=== PATIENT | female | born 1995 | race Caucasian/White ===

== ENCOUNTER 2016-11-12 10:43 | Inpatient (IN) | payer OTHER, BC ==
[2016-11-12] MEDS ORDERED: Butorphanol 1 MG/ML SDV IVPUSH PRN (11:59)
[2016-11-12] MEDS ORDERED: Methylergonovine 0.2 MG/1 ML Amp IM PRN (11:59)
[2016-11-12] MEDS ORDERED: Carboprost Tromethamine 250 MCG/1 ML Amp IM PRN (11:59)
[2016-11-12] MEDS ORDERED: Misoprostol 200 MCG Tab PO PRN (11:59)
[2016-11-12] MEDS ORDERED: Lidocaine 1% 50 ML MDV INJECT PRN (11:59)
[2016-11-12] MEDS ORDERED: Sodium Chloride 0.9% 2.5 ML Syringe FLUSH PRN (11:59)
[2016-11-12] MEDS ORDERED: Water For Irrigation,Sterile 1,000 ML Container IRR PRN (11:59)
[2016-11-12] MEDS ORDERED: Sodium Chloride 0.9% 10 ML Syringe FLUSH PRN (11:59)
[2016-11-12] MEDS ORDERED: Ampicillin 2 GM in Sodium Chloride 0.9% 100 ML IV ONE (11:59)
[2016-11-12] MEDS ORDERED: Nalbuphine 10 MG/1 ML Vial IVPUSH PRN (11:59)
[2016-11-12] MEDS ORDERED: Oxytocin/Lactated Ringers 30 UNIT/500 ML BAG IV SCH ×2 (12:00→13:00)
[2016-11-12] MEDS: Lactated Ringers 1,000 ML IV SCH ×3 (12:30→17:43)
[2016-11-12] MEDS ORDERED: Terbutaline 1 MG/ML SDV SUBCUT PRN (12:50)
[2016-11-12] MEDS ORDERED: Oxytocin/Lactated Ringers 30 UNIT/500 ML BAG ONE (13:04)
[2016-11-12] MEDS ORDERED: fentaNYL 100 MCG/2 ML SDV ONE (16:49)
[2016-11-12] MEDS: Ampicillin 1 GM in Sodium Chloride 0.9% 50 ML IV SCH ×2 (16:49→20:57)
[2016-11-12] MEDS ORDERED: Ropivacaine 0.2% 2 MG/ML 20 ML SDV ONE (16:50)
--- NOTE | 2016-11-12 17:31 | PCM.PREANE ---
Preanesthetic Assessment - Anesthesia/Transfusion/Family Hx Anesthesia History: No Prior Anesthesia Family History of Anesthesia Reaction: No Transfusion History: No Prior Transfusion(s) Additional History: Denies any medical problems or medications - Review of Systems General: No Symptoms Pulmonary: No Symptoms Cardiovascular: No Symptoms Gastrointestinal: No symptoms Neurological: No Symptoms Other: Reports: None (Denies any personal or family hx of bleeding or clotting problems) - Physical Assessment Height: 1.63 m Weight: 73.028 kg ASA Class: 2 Mental Status: Alert & Oriented x3 Dentition: Reports: Normal Dentition ROM/Head Extension: Full - Lab Values: Laboratory Last Values WBC 8.52 K/uL (4.0-11.0) 11/12/16 12:29 RBC 4.47 M/uL (4.30-5.90) 11/12/16 12:29 Hgb 12.9 g/dL (12.0-16.0) 11/12/16 12:29 Hct 38.9 % (36.0-46.0) 11/12/16 12:29 MCV 87.0 fL (80.0-98.0) 11/12/16 12:29 MCH 28.9 pg (27.0-32.0) 11/12/16 12:29 MCHC 33.2 g/dL (31.0-37.0) 11/12/16 12:29 RDW Std Deviation 41.3 fl (28.0-62.0) 11/12/16 12:29 RDW Coeff of Darlene 13 % (11.0-15.0) 11/12/16 12:29 Plt Count 241 K/uL (150-400) 11/12/16 12:29 MPV 9.80 fL (7.40-12.00) 11/12/16 12:29 Nucleated RBC % 0.0 /100WBC 11/12/16 12:29 Nucleated RBCs # 0 K/uL 11/12/16 12:29 Membrane Rupture POSITIVE 11/12/16 11:10 Blood Type O POSITIVE 11/12/16 12:29 Antibody Screen NEGATIVE 11/12/16 12:29 - Allergies Allergies/Adverse Reactions: Allergies Allergy/AdvReac Type Severity Reaction Status Date / Time No Known Allergies Allergy Verified 11/12/16 11:58 - Acknowledgements Anesthesia Type Planned: Epidural Pt an Appropriate Candidate for the Planned Anesthesia: Yes Alternatives and Risks of Anesthesia Discussed w Pt/Guardian: Yes Pt/Guardian Understands and Agrees with Anesthesia Plan: Yes 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: , Spontaneous - Past Surgical History HEENT Surgical History: Reports: Tonsillectomy, Other (See Below) Other HEENT Surgeries/Procedures: wisdom tooth extraction Female Surgical History: Reports: Breast Reconstruction - SUBSTANCE USE Smoking Status *Q: Never Smoker Second Hand Smoke Exposure: No Recreational Drug Use History: No - CURRENT (IN HOUSE) MEDS Current Meds: Current Medications Butorphanol Tartrate (Stadol) 1 mg IVPUSH ASDIRECTED PRN PRN Reason: Pain Carboprost Tromethamine (Hemabate Ds) 250 mcg IM ASDIRECTED PRN PRN Reason: Post Hemorrhage Ampicillin Sodium 1 gm/ Sodium (Chloride) 50 mls @ 100 mls/hr IV Q4H JULIANN Last Admin: 11/12/16 16:49 Dose: 100 mls/hr Lactated Ringer's (Ringers, Lactated) 1,000 mls @ 150 mls/hr IV ASDIRECTED JULIANN Last Admin: 11/12/16 16:48 Dose: 150 mls/hr Oxytocin/Lactated Ringer's (Pitocin In Lr 30 Units/500 Ml) 30 unit in 500 mls @ 2 mls/hr IV TITRATE JULIANN; 2 MUNITS/MIN PRN Reason: Protocol Last Titration: 11/12/16 16:15 Dose: 10 munits/min, 10 mls/hr Lidocaine HCl (Xylocaine 1%) 50 ml INJECT .ONCE PRN PRN Reason: Laceration repair Methylergonovine Maleate (Methergine) 0.2 mg IM ASDIRECTED PRN PRN Reason: Post Hemorrhage Misoprostol (Cytotec) 200 mcg PO .ONCE PRN PRN Reason: Post Hemorrhage Nalbuphine HCl (Nubain) 10 mg IVPUSH ASDIRECTED PRN PRN Reason: Pain (severe 7-10) Stop: 11/14/16 12:00 Sodium Chloride (Saline Flush) 10 ml FLUSH ASDIRECTED PRN PRN Reason: Keep Vein Open Sodium Chloride (Saline Flush) 2.5 ml FLUSH ASDIRECTED PRN PRN Reason: Keep Vein Open Sterile Water (Sterile Water For Irrigation) 1,000 ml IRR ASDIRECTED PRN PRN Reason: delivery Terbutaline Sulfate (Brethine) 0.25 mg SUBCUT ASDIRECTED PRN PRN Reason: Tacysystole Discontinued Medications Fentanyl (Sublimaze) Confirm Administered Dose 100 mcg .ROUTE .STK-MED ONE Stop: 11/12/16 16:50 Ampicillin Sodium 2 gm/ Sodium (Chloride) 100 mls @ 200 mls/hr IV ONETIME ONE Stop: 11/12/16 12:28 Last Admin: 11/12/16 12:30 Dose: 200 mls/hr Oxytocin/Lactated Ringer's (Pitocin In Lr 30 Units/500 Ml) 30 unit in 500 mls @ 999 mls/hr IV ASDIRECTED JULIANN PRN Reason: 999 MUNITS/MIN Stop: 11/12/16 12:31 Oxytocin/Lactated Ringer's (Pitocin In Lr 30 Units/500 Ml) Confirm Administered Dose 30 unit in 500 mls @ as directed .ROUTE .STK-MED ONE Stop: 11/12/16 13:05 Ropivacaine/Fentanyl/NS (Fentanyl 2 Mcg-Ropiv 0.2%-Ns) Confirm Administered Dose 100 mls @ as directed .ROUTE .STK-MED ONE Stop: 11/12/16 16:49 Ropivacaine (Naropin 0.2%) Confirm Administered Dose 20 ml .ROUTE .STK-MED ONE Stop: 11/12/16 16:51
[2016-11-12] MEDS ORDERED: Witch Hazel Medicated Pads 40/Jar TOP PRN (22:35)
[2016-11-12] MEDS ORDERED: oxyCODONE 5 MG Tab PO PRN (22:35)
[2016-11-12] MEDS ORDERED: Lanolin 100% Cream 7 GM Tube TOP PRN (22:35)
[2016-11-12] MEDS ORDERED: Bisacodyl 10 MG Supp RECTAL PRN (22:35)
[2016-11-12] MEDS ORDERED: Benzocaine/Menthol 20%-0.5% Spray 78 GM Cannister TOP PRN (22:35)
[2016-11-12] MEDS ORDERED: Acetaminophen 500 MG Tab PO PRN (22:35)
[2016-11-13] MEDS: Docusate Sodium 100 MG Cap PO SCH ×2 (00:28→08:36)
[2016-11-13] MEDS: Ibuprofen 800 MG Tab PO PRN ×3 (00:30→15:25)
--- NOTE | 2016-11-13 09:44 | PCM48HPAN ---
Post Anesthesia Note - EVALUATION WITHIN 48HRS OF ANESTHETIC Vital Signs in Normal Range: Yes Patient Participated in Evaluation: Yes Respiratory Function Stable: Yes Airway Patent: Yes Cardiovascular Function Stable: Yes Hydration Status Stable: Yes Pain Control Satisfactory: Yes Nausea and Vomiting Control Satisfactory: Yes Mental Status Recovered: Yes - COMMENTS/OBSERVATIONS Free Text/Narrative:: Up in room. Denies headache or complaints. States epidural worked well.
--- NOTE | 2016-11-13 12:07 | PCM.PNPP ---
- General Info Date of Service: 11/13/16 Functional Status: Reports: pain controlled, tolerating diet, ambulating, urinating - Review of Systems General: Reports: No Symptoms HEENT: Reports: no symptoms Pulmonary: Reports: no symptoms Cardiovascular: Reports: No Symptoms Gastrointestinal: Reports: No symptoms Genitourinary: Reports: no symptoms Musculoskeletal: Reports: no symptoms Skin: Reports: no symptoms Neurological: Reports: No Symptoms Psychiatric: Reports: no symptoms - General Info Date of Service: 11/13/16 - Patient Data Vital Signs - most recent: Last Vital Signs Temp 35.7 C 11/13/16 08:20 Pulse 91 11/13/16 08:20 Resp 18 11/13/16 08:20 BP 112/64 11/13/16 08:20 Pulse Ox Weight - most recent: 73.028 kg Lab Results - last 24 hrs: Laboratory Results - last 24 hr 11/12/16 11/12/16 11/13/16 Range/Units 12:29 12:29 05:35 WBC 8.52 (4.0-11.0) K/uL RBC 4.47 (4.30-5.90) M/uL Hgb 12.9 10.3 L (12.0-16.0) g/dL Hct 38.9 30.7 L (36.0-46.0) % MCV 87.0 (80.0-98.0) fL MCH 28.9 (27.0-32.0) pg MCHC 33.2 (31.0-37.0) g/dL RDW Std Deviation 41.3 (28.0-62.0) fl RDW Coeff of Dralene 13 (11.0-15.0) % Plt Count 241 (150-400) K/uL MPV 9.80 (7.40-12.00) fL Nucleated RBC % 0.0 /100WBC Nucleated RBCs # 0 K/uL Blood Type O POSITIVE Antibody Screen NEGATIVE Med Orders - Current: Current Medications Acetaminophen (Tylenol Extra Strength) 500 mg PO Q4H PRN PRN Reason: Pain Benzocaine/Menthol (Dermoplast Pain Relief 20%-0.5% [place]) 78 gm TOP ASDIRECTED PRN PRN Reason: Perineal Comfort Measure Last Admin: 11/13/16 00:28 Dose: 1 spray Bisacodyl (Dulcolax) 10 mg RECTAL .ONCE PRN PRN Reason: Constipation Butorphanol Tartrate (Stadol) 1 mg IVPUSH ASDIRECTED PRN PRN Reason: Pain Carboprost Tromethamine (Hemabate Ds) 250 mcg IM ASDIRECTED PRN PRN Reason: Post Hemorrhage Docusate Sodium (Colace) 100 mg PO BID [facility] Last Admin: 11/13/16 08:36 Dose: 100 mg Emollient Ointment (Lansinoh Hpa) 0 gm TOP ASDIRECTED PRN PRN Reason: Sore Nipples Last Admin: 11/13/16 00:30 Dose: 1 applic Ampicillin Sodium 1 gm/ Sodium (Chloride) 50 mls @ 100 mls/hr IV Q4H [facility] Last Admin: 11/12/16 20:57 Dose: 100 mls/hr Lactated Ringer's (Ringers, Lactated) 1,000 mls @ 150 mls/hr IV ASDIRECTED [facility] Last Admin: 11/12/16 17:43 Dose: 150 mls/hr Oxytocin/Lactated Ringer's (Pitocin In Lr 30 Units/500 Ml) 30 unit in 500 mls @ 2 mls/hr IV TITRATE JULIANN; 2 MUNITS/MIN PRN Reason: Protocol Last Titration: 11/12/16 21:27 Dose: 500 munits/min, 500 mls/hr Ibuprofen (Motrin) 800 mg PO Q6H PRN PRN Reason: Pain Last Admin: 11/13/16 08:23 Dose: 800 mg Lidocaine HCl (Xylocaine 1%) 50 ml INJECT .ONCE PRN PRN Reason: Laceration repair Last Admin: 11/12/16 21:34 Dose: 50 ml Methylergonovine Maleate (Methergine) 0.2 mg IM ASDIRECTED PRN PRN Reason: Post Hemorrhage Misoprostol (Cytotec) 200 mcg PO .ONCE PRN PRN Reason: Post Hemorrhage Nalbuphine HCl (Nubain) 10 mg IVPUSH ASDIRECTED PRN PRN Reason: Pain (severe 7-10) Stop: 11/14/16 12:00 Oxycodone HCl (Oxycodone) 5 mg PO Q2H PRN PRN Reason: Pain Sodium Chloride (Saline Flush) 10 ml FLUSH ASDIRECTED PRN PRN Reason: Keep Vein Open Sodium Chloride (Saline Flush) 2.5 ml FLUSH ASDIRECTED PRN PRN Reason: Keep Vein Open Sterile Water (Sterile Water For Irrigation) 1,000 ml IRR ASDIRECTED PRN PRN Reason: delivery Last Admin: 11/12/16 21:00 Dose: 1,000 ml Terbutaline Sulfate (Brethine) 0.25 mg SUBCUT ASDIRECTED PRN PRN Reason: Tacysystole Witch Jonelle (Tucks) 1 pad TOP ASDIRECTED PRN PRN Reason: comfort care Last Admin: 11/13/16 00:29 Dose: 1 applic Discontinued Medications Fentanyl (Sublimaze) Confirm Administered Dose 100 mcg .ROUTE .STK-MED ONE Stop: 11/12/16 16:50 Ampicillin Sodium 2 gm/ Sodium (Chloride) 100 mls @ 200 mls/hr IV ONETIME ONE Stop: 11/12/16 12:28 Last Admin: 11/12/16 12:30 Dose: 200 mls/hr Oxytocin/Lactated Ringer's (Pitocin In Lr 30 Units/500 Ml) 30 unit in 500 mls @ 999 mls/hr IV ASDIRECTED JULIANN PRN Reason: 999 MUNITS/MIN Stop: 11/12/16 12:31 Oxytocin/Lactated Ringer's (Pitocin In Lr 30 Units/500 Ml) Confirm Administered Dose 30 unit in 500 mls @ as directed .ROUTE .STK-MED ONE Stop: 11/12/16 13:05 Ropivacaine/Fentanyl/NS (Fentanyl 2 Mcg-Ropiv 0.2%-Ns) Confirm Administered Dose 100 mls @ as directed .ROUTE .STK-MED ONE Stop: 11/12/16 16:49 Ropivacaine (Naropin 0.2%) Confirm Administered Dose 20 ml .ROUTE .STK-MED ONE Stop: 11/12/16 16:51 - Infant Interaction Infant Disposition, : in Room with Family Infant Interaction: Holding Feeding: Attempted ; Nursed Fair/Poor Support Person: - Recovery Exam Fundal Tone: Firm Fundal Level: 1 Fingerbreadths Below Umbilicus Fundal Placement: Midline Lochia Amount: Scant Lochia Color: Rubra/Red Perineum Description: Intact, Minimal Bruising/Swelling Bladder Status: Voiding - Exam General: alert, oriented Neck: supple Lungs: Clear to auscultation, Normal respiratory effort Cardiovascular: Regular Rate, Regular Rhythm Abdomen: bowel sounds present, soft, no tenderness Extremities: no calf tenderness Skin: warm, dry, intact Neurological: no new focal deficit Psy/Mental Status: alert, normal affect, normal mood - Problem List & Annotations (1) Vaginal delivery SNOMED Code(s): 312178465 Code(s): O80 - ENCOUNTER FOR FULL-TERM UNCOMPLICATED DELIVERY Status: Acute Current Visit: Yes - Problem List Review Problem List Initiated/Reviewed/Updated: Yes - My Orders Last 24 Hours: My Active Orders 11/12/16 11:59 May Shower [RC] ASDIRECTED Notify Provider [RC] PRN Up ad Mckayla [RC] ASDIRECTED Vital Signs [RC] PER UNIT ROUTINE Butorphanol [Stadol] 1 mg IVPUSH ASDIRECTED PRN Carboprost Tromethamine [Hemabate DS] 250 mcg IM ASDIRECTED PRN Lidocaine 1% [Xylocaine 1%] 50 ml INJECT .ONCE PRN Methylergonovine [Methergine] 0.2 mg IM ASDIRECTED PRN Misoprostol [Cytotec] 200 mcg PO .ONCE PRN Nalbuphine [Nubain] 10 mg IVPUSH ASDIRECTED PRN Sodium Chloride 0.9% [Saline Flush] 10 ml FLUSH ASDIRECTED PRN Sodium Chloride 0.9% [Saline Flush] 2.5 ml FLUSH ASDIRECTED PRN Water For Irrigation,Sterile [Sterile Water for Irrigation] 1,000 ml IRR ASDIRECTED PRN Scalp Electrode [WOMSER] Per Unit Routine Peripheral IV Insertion Adult [OM.PC] Routine Resuscitation Status Routine 11/12/16 12:00 Ampicillin 1 gm Sodium Chloride 0.9% [Normal Saline] 50 ml IV Q4H Lactated Ringers [Ringers, Lactated] 1,000 ml IV ASDIRECTED 11/12/16 12:50 Oxygen Therapy [RC] ASDIRECTED Vital Signs [RC] PER UNIT ROUTINE Terbutaline [Brethine] 0.25 mg SUBCUT ASDIRECTED PRN 11/12/16 13:00 Oxytocin/Lactated Ringers [Pitocin in LR 30 Units/500 ML] 30 unit in 500 ml IV TITRATE Medication Administration Instruction [OM.PC] Q3H 11/12/16 22:35 Patient Status [ADT] Routine May Shower [RC] ASDIRECTED Up ad Mckayla [RC] ASDIRECTED Vital Signs [RC] PER UNIT ROUTINE Acetaminophen [Tylenol Extra Strength] 500 mg PO Q4H PRN Benzocaine/Menthol [Dermoplast Pain Relief 20%-0.5% [place]] 78 gm TOP ASDIRECTED PRN Bisacodyl [Dulcolax] 10 mg RECTAL .ONCE PRN Ibuprofen [Motrin] 800 mg PO Q6H PRN Lanolin [Lansinoh HPA] See Dose Instructions TOP ASDIRECTED PRN Witch Jonelle [Tucks] 1 pad TOP ASDIRECTED PRN oxyCODONE 5 mg PO Q2H PRN Assess Lochia [WOMSER] Per Unit Routine Assess Uterine Involution [WOMSER] Per Unit Routine Breast Pump [WOMSER] Per Unit Routine Ice Therapy [OM.PC] Per Unit Routine Perineal Care [OM.PC] Per Unit Routine Peripheral IV Discontinue [OM.PC] Routine Sitz Bath [OM.PC] Per Unit Routine 11/12/16 22:45 Docusate Sodium [Colace] 100 mg PO BID - Assessment Assessment:: PPD#1 S/p SAVD Doing well Anticipate discharge home tomorrow as pt is working on breast feeding. - Plan Plan:: Increase ambulation Continue to work on breast feeding Routine pp care
--- NOTE | 2016-11-13 14:07 | OR ---
SURGEON: Trish Faustin DATE OF PROCEDURE: 11/12/2016 BRIEF PRE-DELIVERY HISTORY: This is a 21-year-old, G3, P0, presented to Labor and Delivery with complaints of leakage of fluid. The patient was found to be ruptured with clear fluid approximately 5 to 6 hours earlier. Of note, on admission, the patient was 38 weeks and 4 days. There was a heart tracing significant for a category 1 status. The patient was john occasionally and not necessarily feeling contractions. On admission, the patient's cervix was noted to be 2 cm dilated, approximately 70% effaced, and posterior. The patient also was noted to be GBS positive. The patient was started immediately on IV ampicillin and also on IV Pitocin as the patient had no significant labor after being ruptured for almost 6 hours. The patient eventually received her epidural for analgesia during labor. The patient eventually progressed to completely dilated and +3 station. The patient started maternal expulsive efforts. PREOPERATIVE DIAGNOSES: 1. Intrauterine at 38 weeks and 4 days. 2. GBS positive. 3. Premature rupture of membranes. POSTOPERATIVE DIAGNOSES: 1. Intrauterine at 38 weeks and 4 days. 2. GBS positive. 3. Premature rupture of membranes. 4. Delivered status. 5. Midline second-degree perineal laceration. PROCEDURES PERFORMED: 1. Spontaneous-assisted vaginal delivery. 2. Repair of midline second-degree perineal laceration. ANESTHESIA TYPE: Epidural and local. ESTIMATED BLOOD LOSS: 200 mL. FINDINGS: Viable male in vertex presentation with score of 9 and 9 at 1 and 5 minutes respectively. Weight 3460 grams. Normal intact placenta with 3-vessel cord. Second-degree perineal laceration. SPECIMEN REMOVED: Placenta. CONDITION: Postoperatively, the patient and tolerated the procedure well. COMPLICATIONS: None known. DESCRIPTION OF PROCEDURE: This female, under epidural anesthesia, delivered a viable male with score of 9 and 9 at 1 and 5 minutes respectively and weight of 3460 grams. Delivery was via spontaneous-assisted vaginal delivery with in vertex presentation. Upon delivery of vertex, the neck was checked. There was no nuchal to be reduced. The anterior shoulder delivered spontaneously followed by the body. The was placed directly on mom's abdomen secondary to maternal request. The was vigorous at delivery. Delayed cord clamping was employed secondary to the patient's request. The cord was eventually doubly clamped and cut. Cord blood was collected and sent for analysis. After delivery of , IV Pitocin was given as uterotonic to prevent excessive maternal blood loss and to help expel the placenta. With signs of placental separation, a fundal massage was completed along with traction on the umbilical cord. Shortly thereafter, a normal intact placenta with 3-vessel cord was delivered. After delivery of the and placenta, the vagina, perineum, and rectum were explored, and the patient had a midline second-degree perineal laceration that was repaired with 2-0 Vicryl suture reapproximating the bulbocavernosus muscle, and then 3-0 Vicryl suture in the usual 3-layer fashion. Afterwards, the lower uterine segment and vagina were cleared of all clots and debris. The patient was cleansed, pads were changed, and the bed was returned to functioning status. The patient and tolerated the procedure well. JOSE M CADE /[id number] PRAMOD
[2016-11-13] MEDS: Ampicillin 1 GM in Sodium Chloride 0.9% 50 ML IV SCH (17:22)
[2016-11-14] MEDS: Ibuprofen 800 MG Tab PO PRN (05:06)
[2016-11-14] MEDS: Docusate Sodium 100 MG Cap PO SCH (09:43)
[2016-11-14 09:47] VITALS: BP 121/63
--- NOTE | 2016-11-14 10:14 | PCM.PNPP ---
- General Info Date of Service: 11/14/16 Functional Status: Reports: pain controlled, ambulating, urinating - Review of Systems General: Denies: Fever, Weakness, Fatigue, Chills HEENT: Denies: headaches Pulmonary: Denies: shortness of breath, pleuritic chest pain Cardiovascular: Denies: Chest Pain, Palpitations, Dyspnea on Exertion Gastrointestinal: Denies: Abdominal pain Genitourinary: Denies: dysuria, incontinence Psychiatric: Denies: depression, mood lability, anxiety - General Info Date of Service: 11/14/16 - Patient Data Vital Signs - most recent: Last Vital Signs Temp 36.6 C 11/14/16 07:45 Pulse 88 11/14/16 07:45 Resp 16 11/14/16 07:45 BP 121/63 11/14/16 07:45 Pulse Ox 97 11/14/16 07:45 Weight - most recent: 161 lb Med Orders - Current: Current Medications Acetaminophen (Tylenol Extra Strength) 500 mg PO Q4H PRN PRN Reason: Pain Last Admin: 11/13/16 13:26 Dose: 500 mg Benzocaine/Menthol (Dermoplast Pain Relief 20%-0.5% [place]) 78 gm TOP ASDIRECTED PRN PRN Reason: Perineal Comfort Measure Last Admin: 11/13/16 00:28 Dose: 1 spray Bisacodyl (Dulcolax) 10 mg RECTAL .ONCE PRN PRN Reason: Constipation Docusate Sodium (Colace) 100 mg PO BID [facility] Last Admin: 11/14/16 09:43 Dose: 100 mg Emollient Ointment (Lansinoh Hpa) 0 gm TOP ASDIRECTED PRN PRN Reason: Sore Nipples Last Admin: 11/13/16 00:30 Dose: 1 applic Lactated Ringer's (Ringers, Lactated) 1,000 mls @ 150 mls/hr IV ASDIRECTED [facility] Last Admin: 11/12/16 17:43 Dose: 150 mls/hr Ibuprofen (Motrin) 800 mg PO Q6H PRN PRN Reason: Pain Last Admin: 11/14/16 05:06 Dose: 800 mg Oxycodone HCl (Oxycodone) 5 mg PO Q2H PRN PRN Reason: Pain Witch Jonelle (Tucks) 1 pad TOP ASDIRECTED PRN PRN Reason: comfort care Last Admin: 11/13/16 00:29 Dose: 1 applic Discontinued Medications Butorphanol Tartrate (Stadol) 1 mg IVPUSH ASDIRECTED PRN PRN Reason: Pain Carboprost Tromethamine (Hemabate Ds) 250 mcg IM ASDIRECTED PRN PRN Reason: Post Hemorrhage Fentanyl (Sublimaze) Confirm Administered Dose 100 mcg .ROUTE .STK-MED ONE Stop: 11/12/16 16:50 Last Admin: 11/13/16 17:20 Dose: Not Given Ampicillin Sodium 2 gm/ Sodium (Chloride) 100 mls @ 200 mls/hr IV ONETIME ONE Stop: 11/12/16 12:28 Last Admin: 11/12/16 12:30 Dose: 200 mls/hr Ampicillin Sodium 1 gm/ Sodium (Chloride) 50 mls @ 100 mls/hr IV Q4H JULIANN Last Admin: 11/13/16 17:22 Dose: Not Given Oxytocin/Lactated Ringer's (Pitocin In Lr 30 Units/500 Ml) 30 unit in 500 mls @ 999 mls/hr IV ASDIRECTED JULIANN PRN Reason: 999 MUNITS/MIN Stop: 11/12/16 12:31 Last Admin: 11/13/16 17:19 Dose: Not Given Oxytocin/Lactated Ringer's (Pitocin In Lr 30 Units/500 Ml) 30 unit in 500 mls @ 2 mls/hr IV TITRATE JULIANN; 2 MUNITS/MIN PRN Reason: Protocol Last Titration: 11/12/16 21:27 Dose: 500 munits/min, 500 mls/hr Oxytocin/Lactated Ringer's (Pitocin In Lr 30 Units/500 Ml) Confirm Administered Dose 30 unit in 500 mls @ as directed .ROUTE .STK-MED ONE Stop: 11/12/16 13:05 Last Admin: 11/13/16 17:21 Dose: Not Given Ropivacaine/Fentanyl/NS (Fentanyl 2 Mcg-Ropiv 0.2%-Ns) Confirm Administered Dose 100 mls @ as directed .ROUTE .STK-MED ONE Stop: 11/12/16 16:49 Last Admin: 11/13/16 17:21 Dose: Not Given Lidocaine HCl (Xylocaine 1%) 50 ml INJECT .ONCE PRN PRN Reason: Laceration repair Last Admin: 11/12/16 21:34 Dose: 50 ml Methylergonovine Maleate (Methergine) 0.2 mg IM ASDIRECTED PRN PRN Reason: Post Hemorrhage Misoprostol (Cytotec) 200 mcg PO .ONCE PRN PRN Reason: Post Hemorrhage Nalbuphine HCl (Nubain) 10 mg IVPUSH ASDIRECTED PRN PRN Reason: Pain (severe 7-10) Stop: 11/14/16 12:00 Ropivacaine (Naropin 0.2%) Confirm Administered Dose 20 ml .ROUTE .STK-MED ONE Stop: 11/12/16 16:51 Last Admin: 11/13/16 17:20 Dose: Not Given Sodium Chloride (Saline Flush) 10 ml FLUSH ASDIRECTED PRN PRN Reason: Keep Vein Open Sodium Chloride (Saline Flush) 2.5 ml FLUSH ASDIRECTED PRN PRN Reason: Keep Vein Open Sterile Water (Sterile Water For Irrigation) 1,000 ml IRR ASDIRECTED PRN PRN Reason: delivery Last Admin: 11/12/16 21:00 Dose: 1,000 ml Terbutaline Sulfate (Brethine) 0.25 mg SUBCUT ASDIRECTED PRN PRN Reason: Tacysystole - Interaction Disposition, : [place] to Nursery Infant Feeding: Breastfed ; Nursed Well Support Person: - Recovery Exam Fundal Tone: Firm Fundal Level: 1 Fingerbreadths Below Umbilicus Fundal Placement: Midline Lochia Amount: Small Lochia Color: Rubra/Red Perineum Description: Intact, Minimal Bruising/Swelling Bladder Status: Voiding Urinary Elimination: Voided - Exam General: alert, oriented HEENT: Pupils equal Neck: supple Lungs: Clear to auscultation, Normal respiratory effort Cardiovascular: Regular Rate, Regular Rhythm Abdomen: bowel sounds present, soft Extremities: no calf tenderness, edema Skin: warm Psy/Mental Status: alert, normal affect, normal mood - Problem List & Annotations (1) Vaginal delivery SNOMED Code(s): 235528028 Code(s): O80 - ENCOUNTER FOR FULL-TERM UNCOMPLICATED DELIVERY Status: Acute Current Visit: Yes - Problem List Review Problem List Initiated/Reviewed/Updated: Yes - Assessment Assessment:: PPD#2 S/p Clinically stable for discharge today - Plan Plan:: Discharge instructions reviewed Nothing in the vagina for 6 weeks Bleeding and infection precautions reviewed Perineal care reviewed Continue PNV Follow up in 6 weeks
== END 2016-11-14 12:04 | disposition home or self-care (01) | DRG 775 ==
LOC: MW.OBCHECK 10:43 → MW.OB 10:47 → MW.OBCHECK 20:00 → OBSVTOIN 21:23 → MW.OB 11-13 00:30
PROVIDERS: ADMIT Obstetrics & Gynecology; ATTEND Obstetrics & Gynecology
PROC: 10E0XZZ Delivery of Products of Conception, External Approach (ICD-10-PCS; principal; 2016-11-12)
PROC: 0KQM0ZZ Repair Perineum Muscle, Open Approach (ICD-10-PCS; 2016-11-12)
DX: O42.02 Full-term premature rupture of membranes, onset of labor within 24 hours of rupture (principal); Z3A.38 38 weeks gestation of pregnancy; Z37.0 Single live birth
CPT/HCPCS: 01967; 36415; 59025; 84112; 85014; 85018; 85027; 86850; 86900; 86901; A9270-GY; J0290; J7030; J7050; J7120

== ENCOUNTER 2019-12-20 09:59 | Day surgery (SDC) | payer BC ==
[~2019-12-20 09:59] MED LIST: Lactated Ringers 1,000 ML IV SCH
--- NOTE | 2019-12-20 10:46 | PCM.PREANE ---
Preanesthetic Assessment - Anesthesia/Transfusion/Family Hx Anesthesia History: Prior Anesthesia Without Reaction Family History of Anesthesia Reaction: No Transfusion History: No Prior Transfusion(s) Intubation History: Unknown - Review of Systems General: No Symptoms Pulmonary: No Symptoms Cardiovascular: No Symptoms Gastrointestinal: No Symptoms Neurological: No Symptoms Other: Reports: None - Physical Assessment Height: 5 ft 4 in Weight: 61.689 kg ASA Class: 2 Mental Status: Alert & Oriented x3 Airway Class: Mallampati = 1 Dentition: Reports: Normal Dentition Thyro-Mental Finger Breadths: 3 Mouth Opening Finger Breadths: 2 (small mouth) ROM/Head Extension: Full Lungs: Clear to Auscultation, Normal Respiratory Effort Cardiovascular: Regular Rate, Regular Rhythm - Allergies Allergies/Adverse Reactions: Allergies Allergy/AdvReac Type Severity Reaction Status Date / Time No Known Allergies Allergy Verified 12/19/19 15:41 - Blood Blood Available: No - Anesthesia Plan Pre-Op Medication Ordered: None - Acknowledgements Anesthesia Type Planned: General Anesthesia Pt an Appropriate Candidate for the Planned Anesthesia: Yes Alternatives and Risks of Anesthesia Discussed w Pt/Guardian: Yes Pt/Guardian Understands and Agrees with Anesthesia Plan: Yes PreAnesthesia Questionnaire HEENT History: Reports: Other (See Below) Other HEENT History: wears glasses Respiratory History: Reports: Other (See Below) Other Respiratory History: used an inhaler when she had bronchitis- not since RN PHYSICIAN OFFICE History: Reports: , Spontaneous (incomplete8 4/7 weeks) Neurological History: Reports: Concussion - Past Surgical History Female Surgical History: Reports: Breast Implant - SUBSTANCE USE Smoking Status *Q: Never Smoker Recreational Drug Use History: No - HOME MEDS Home Medications: Home Meds . [No Known Home Meds] 12/19/19 [History] - CURRENT (IN HOUSE) MEDS Current Meds: Current Medications Lactated Ringer's (Ringers, Lactated) 1,000 mls @ 100 mls/hr IV ASDIRECTED [facility]
[2019-12-20] MEDS ORDERED: Lidocaine 2% 5 ML SDV ONE (11:03)
[2019-12-20] MEDS ORDERED: Propofol 200 MG/20 ML SDV ONE ×2 (11:03→11:05)
[2019-12-20] MEDS ORDERED: HYDROmorphone 2 MG/ML Syringe ONE (11:04)
[2019-12-20] MEDS ORDERED: fentaNYL 100 MCG/2 ML SDV ONE (11:04)
[2019-12-20] MEDS ORDERED: Midazolam 1 MG/ML 2 ML SDV ONE (11:04)
[2019-12-20] MEDS ORDERED: Dexamethasone 4 MG/ML 5 ML MDV ONE (11:08)
[2019-12-20] MEDS ORDERED: Ondansetron 4 MG/2 ML SDV ONE (11:09)
--- NOTE | 2019-12-20 12:06 | PCM.OPNOTE ---
- General Post-Op/Procedure Note Date of Surgery/Procedure: 12/20/19 Operative Procedure(s): D&E Pre Op Diagnosis: Blighted ovum Post-Op Diagnosis: Same Anesthesia Technique: General LMA Primary Surgeon: Dangelo Davis EBL in mLs: 200 Complications: None Condition: Good
--- NOTE | 2019-12-20 12:07 | PCM.DCSUM1 ---
Discharge Summary - Hospital Course Diagnosis: Stroke: No - Discharge Data Discharge Date: 12/20/19 Discharge Disposition: Home, Self-Care 01 Condition: Good - Referral to Home Health Primary Care Physician: Adi Young MD - Patient Summary/Data Operative Procedure(s) Performed: D&E - Patient Instructions Diet: Usual Diet as Tolerated Activity: As Tolerated Driving: Do Not Drive Showering/Bathing: May Shower - Discharge Plan Home Medications: Home Meds . [No Known Home Meds] 12/19/19 [History] - Discharge Summary/Plan Comment DC Time >30 min.: Yes - General Info Date of Service: 12/20/19 Functional Status: Reports: Pain Controlled - Review of Systems General: Reports: No Symptoms HEENT: Reports: No Symptoms Pulmonary: Reports: No Symptoms Cardiovascular: Reports: No Symptoms Gastrointestinal: Reports: No Symptoms Genitourinary: Reports: No Symptoms Musculoskeletal: Reports: No Symptoms Skin: Reports: No Symptoms Neurological: Reports: No Symptoms Psychiatric: Reports: No Symptoms - Patient Data Vitals - Most Recent: Last Vital Signs Temp 36.1 C 12/20/19 10:20 Pulse 82 12/20/19 10:20 Resp 74 H 12/20/19 10:20 BP 108/74 12/20/19 10:20 Pulse Ox 95 12/20/19 10:20 Weight - Most Recent: 61.689 kg Lab Results - Last 24 hrs: Laboratory Results - last 24 hr 12/20/19 Range/Units 10:44 Blood Type O POSITIVE Antibody Screen NEGATIVE Med Orders - Current: Current Medications Lactated Ringer's (Ringers, Lactated) 1,000 mls @ 100 mls/hr IV ASDIRECTED JULIANN Discontinued Medications Dexamethasone (Dexamethasone) Confirm Administered Dose 20 mg .ROUTE .STK-MED ONE Stop: 12/20/19 11:09 Fentanyl (Sublimaze) Confirm Administered Dose 100 mcg .ROUTE .STK-MED ONE Stop: 12/20/19 11:05 Hydromorphone HCl (Dilaudid) Confirm Administered Dose 2 mg .ROUTE .STK-MED ONE Stop: 12/20/19 11:05 Acetaminophen (Ofirmev) Confirm Administered Dose 100 mls @ as directed .ROUTE .STK-MED ONE Stop: 12/20/19 11:11 Lidocaine (Xylocaine-Mpf 2%) Confirm Administered Dose 5 ml .ROUTE .STK-MED ONE Stop: 12/20/19 11:04 Midazolam HCl (Versed 1 Mg/Ml) Confirm Administered Dose 2 mg .ROUTE .STK-MED ONE Stop: 12/20/19 11:05 Ondansetron HCl (Zofran) Confirm Administered Dose 4 mg .ROUTE .STK-MED ONE Stop: 12/20/19 11:10 Propofol (Diprivan 20 Ml) Confirm Administered Dose 400 mg .ROUTE .STK-MED ONE Stop: 12/20/19 11:04 Propofol (Diprivan 20 Ml) Confirm Administered Dose 200 mg .ROUTE .STK-MED ONE Stop: 12/20/19 11:06 - Exam General: Reports: Alert, Oriented HEENT: Reports: Pupils Equal, Pupils Reactive, EOMI, Mucous Membr. Moist/[place] Neck: Reports: Supple Lungs: Reports: Clear to Auscultation, Normal Respiratory Effort Cardiovascular: Reports: Regular Rate, Regular Rhythm GI/Abdominal Exam: Normal Bowel Sounds, Soft, Non-Tender, No Organomegaly, No Distention, No Abnormal Bruit, No Mass, Pelvis Stable (Female) Exam: Normal External Exam, Normal Speculum Exam, Normal Bimanual Exam Rectal (Female) Exam: Normal Exam, Normal Rectal Tone Back Exam: Reports: Normal Inspection, Full Range of Motion Extremities: Normal Inspection, Normal Range of Motion, Non-Tender, No Pedal Edema, Normal Capillary Refill Skin: Reports: Warm, Dry, Intact Wound/Incisions: Reports: Healing Well Neurological: Reports: No New Focal Deficit Psy/Mental Status: Reports: Alert, Normal Affect, Normal Mood
--- NOTE | 2019-12-20 12:22 | PCM.POSTAN ---
POST ANESTHESIA ASSESSMENT - MENTAL STATUS Mental Status: Alert, Oriented - VITAL SIGNS Vital Signs: Last Vital Signs Temp 36.4 C 12/20/19 12:08 Pulse 91 12/20/19 12:13 Resp 12 12/20/19 12:13 BP 96/57 L 12/20/19 12:13 Pulse Ox 100 12/20/19 12:13 - RESPIRATORY Respiratory Status: Respiratory Rate WNL, Airway Patent, O2 Saturation Stable - CARDIOVASCULAR CV Status: Pulse Rate WNL, Blood Pressure Stable - GASTROINTESTINAL GI Status: No Symptoms - PAIN Pain Score: 0 (Denies pain) - POST OP HYDRATION Hydration Status: Adequate & Stable
[2019-12-20] MEDS ORDERED: Ketorolac 30 MG/ML SDV IVPUSH ONE (12:41)
--- NOTE | 2019-12-20 13:07 | PCM48HPAN ---
Post Anesthesia Note - EVALUATION WITHIN 48HRS OF ANESTHETIC Vital Signs in Normal Range: Yes Patient Participated in Evaluation: Yes Respiratory Function Stable: Yes Airway Patent: Yes Cardiovascular Function Stable: Yes Hydration Status Stable: Yes Pain Control Satisfactory: Yes (Denies pain) Nausea and Vomiting Control Satisfactory: Yes Mental Status Recovered: Yes Vital Signs: Last Vital Signs Temp 36.4 C 12/20/19 12:08 Pulse 90 12/20/19 12:18 Resp 12 12/20/19 12:18 BP 105/50 L 12/20/19 12:18 Pulse Ox 100 12/20/19 12:18 - COMMENTS/OBSERVATIONS Free Text/Narrative:: Taking PO without difficulty.
[2019-12-20 15:20] VITALS: BP 114/55; PULSE 72
--- NOTE | 2019-12-20 15:51 | OR ---
SURGEON: Dangelo Davis MD DATE OF PROCEDURE: 12/20/2019 PREOPERATIVE DIAGNOSIS: Blighted ovum. POSTOPERATIVE DIAGNOSIS: Blighted ovum. OPERATION PERFORMED: Dilatation and evacuation. PRIMARY SURGEON: Dangelo Davis MD PAINTER SKI EDGE: None. ANESTHESIA: LMA. ESTIMATED BLOOD LOSS: 200 mL. COMPLICATIONS: None. FINDINGS: Products of conception. INDICATIONS FOR SURGERY: The patient is 8 to 9 weeks' . She had demise, and the patient elected to have a D and E. PROCEDURE IN DETAIL: The patient was brought to the OR, properly identified, and after adequate level of anesthesia, the patient was placed in lithotomy position, prepped and draped in sterile fashion as usual. Weighted speculum was placed in vagina and straight catheter used to empty the bladder. Single-tooth tenaculum applied to the cervix and then the cervix sequentially dilated to accommodate curved 8 cannula. The cannula was placed in the endometrial cavity and the endometrial cavity was suctioned and evacuated completely and uniformly from all products of conception. Once that was done, the small curette was used to make sure that the uterus was empty. Ascertaining that, the procedure ended. The instrument and sponge count was correct. The patient tolerated the procedure well, went to recovery room in stable general condition. GREYSON / RAYO /[id number]
== END 2019-12-20 14:05 | disposition home or self-care (01) ==
LOC: MW.SDS 09:59
PROVIDERS: ATTEND Obstetrics & Gynecology
DX: O02.0 Blighted ovum and nonhydatidiform mole (principal)
CPT/HCPCS: 36415; 59820; 86850; 86900; 86901; J0131; J1100; J1170; J1885; J2001; J2250; J2405; J2704; J3010; J7120; 01965; 88305

== ENCOUNTER 2021-01-10 06:37 | Inpatient (IN) | payer BC ==
[2021-01-10] MEDS ORDERED: Oxytocin 10 Units/1 ML SDV ONE (06:47)
[2021-01-10] MEDS ORDERED: Oxytocin/0.9 % Sodium Chloride 30 UNIT/500 ML BAG ONE (06:47)
[2021-01-10] MEDS ORDERED: Lidocaine 1% 50 ML MDV ONE (06:56)
[2021-01-10] MEDS ORDERED: Oxytocin 10 Units/1 ML SDV IM ONE (07:20)
[2021-01-10] MEDS ORDERED: Lanolin 100% Cream 7 GM Tube TOP PRN (07:55)
[2021-01-10] MEDS ORDERED: Ibuprofen 400 MG Tab PO PRN (07:55)
[2021-01-10] MEDS ORDERED: Acetaminophen 500 MG Tab PO PRN ×2 (07:55)
[2021-01-10] MEDS ORDERED: Benzocaine/Menthol 20%-0.5% Spray 78 GM Cannister TOP PRN (07:55)
[2021-01-10] MEDS ORDERED: Bisacodyl 10 MG Supp RECTAL PRN (07:55)
[2021-01-10] MEDS ORDERED: Witch Hazel Medicated Pads 40/Jar TOP PRN (07:55)
[2021-01-10] MEDS ORDERED: oxyCODONE 5 MG Tab PO PRN (07:55)
--- NOTE | 2021-01-10 08:04 | PCM.OPNOTE ---
- General Post-Op/Procedure Note Date of Surgery/Procedure: 01/10/21 Operative Procedure(s): /2nd MLE repaired Findings: Viable male 9, 9 weight pending. Spontaneous delivery intact placenta with 3V cord Pre Op Diagnosis: 39/4 week IUP. Active labor Post-Op Diagnosis: Same Anesthesia Technique: Other (see below) (pudendal) Primary Surgeon: Malaika Crowe EBL in mLs: 200 Complications: none known Condition: Good Free Text/Narrative:: Dictation [id number]
--- NOTE | 2021-01-10 09:29 | OR ---
SURGEON: Malaika Crowe M.D. DATE OF PROCEDURE: 01/10/2021 PREOPERATIVE DIAGNOSES: 1. 39 and 4 weeks intrauterine . 2. Active labor. POSTOPERATIVE DIAGNOSES: 1. 39 and 4 weeks intrauterine . 2. Active labor. PROCEDURE: Spontaneous vaginal delivery, second-degree midline episiotomy, repaired. ANESTHESIA: Pudendal. COMPLICATIONS: None. FINDINGS: Viable male. score 9 at 1 minute and 9 at 5 minutes. Weight is pending. Spontaneous delivery, intact placenta, 3-vessel cord. DISPOSITION: to nursery. Mom in LDRP, stable. PROCEDURE IN DETAIL: Trinidad is a 25-year-old, G2, P1, at 39 and 5 weeks' gestational age who presents this morning with regular contractions since 3 a.m., became very intense in nature. She arrived shortly after 6 a.m. At that time, was found to be complete, 100% effaced, +2 station with urge to push. I was called for delivery. Upon my arrival, patient was placed in modified dorsal lithotomy position. She was requesting relief with pain medication. I offered pudendal block and she was agreeable to this. Therefore, the perineum was prepped in usual aseptic manner and I was able to locate the right pudendal notch, followed by the left pudendal notch, and 5 mL of 1% lidocaine was instilled into each of these regions, followed by 2 mL along the midline perineum. The patient continued with pushing efforts, was able to push readily to a +4 station. I was having difficulty delivering past the +4 station and requested assistance. Therefore, a control midline episiotomy was performed to also help prevent against lateral lacerations along the labium and periurethral region. With the next contraction, the patient was able to deliver 's head atraumatically spontaneously, followed by anterior shoulder, posterior shoulder, and remaining body without difficulty. The infant's oropharynx and nares were bulb suctioned. was handed off to his mother with attending nursing staff at her side. After delayed cord was clamped x2 and cut, cord arterial, cord venous, cord blood sampling was obtained. Light pressure was applied while the placenta was delivered spontaneously intact. Vigorous fundal uterine massage was then applied while 10 units of Pitocin was delivered via IM as the patient did not have an IV. Upon inspection of cervix, vaginal sidewall, and perineum the second-degree midline episiotomy was present. This was repaired using 3-0 Vicryl in the usual fashion after re-prepping the area with 2mL of 1% lidocaine. The patient tolerated the procedure well. Uterus remained firm. Hemostasis remained evident. Sponge count, instrument count, and needle count were correct. The patient remained in LDRP, infant to nursery. KIMMY / RAYO /[id number] MTDD
[2021-01-10] MEDS: Ibuprofen 800 MG Tab PO PRN ×2 (09:48→16:51)
[2021-01-10] MEDS: Docusate Sodium 100 MG Cap PO PRN ×2 (10:00→21:11)
[2021-01-11] MEDS: Ibuprofen 800 MG Tab PO PRN (04:41)
--- NOTE | 2021-01-11 08:26 | PCM.PNPP ---
- General Info Date of Service: 01/11/21 Functional Status: Reports: Pain Controlled, Tolerating Diet, Ambulating, Urinating - Review of Systems General: Reports: No Symptoms HEENT: Reports: No Symptoms Pulmonary: Reports: No Symptoms Cardiovascular: Reports: No Symptoms Gastrointestinal: Reports: No Symptoms Genitourinary: Reports: No Symptoms Musculoskeletal: Reports: No Symptoms Skin: Reports: No Symptoms Neurological: Reports: No Symptoms Psychiatric: Reports: No Symptoms - Patient Data Vital Signs - Most Recent: Last Vital Signs Temp 36.6 C 01/11/21 05:00 Pulse 72 01/11/21 05:00 Resp 19 01/10/21 20:00 BP 114/67 01/11/21 05:00 Pulse Ox 98 01/10/21 20:00 Weight - Most Recent: 73.936 kg Lab Results - Last 24 Hours: Laboratory Results - last 24 hr 01/10/21 01/10/21 01/11/21 Range/Units 07:18 12:00 05:20 Hgb 10.9 L (12.0-16.0) g/dL Hct 33.4 L (36.0-46.0) % Cord ABG pH 7.290 (7.18-7.38) Cord ABG Base Excess -8 (-10--2) Cord VBG pH 7.295 (7.25-7.45) Cord VBG Base Excess -9 (-10--2) SARS-CoV-2 RNA (JENNIFER) NEGATIVE (NEGATIVE) Med Orders - Current: Current Medications Acetaminophen (Acetaminophen 500 Mg Tab) 500 mg PO Q4H PRN PRN Reason: Pain (mild 1-3) Acetaminophen (Acetaminophen 500 Mg Tab) 1,000 mg PO Q4H PRN PRN Reason: Pain (mild 1-3) Last Admin: 01/10/21 21:11 Dose: 1,000 mg Documented by: Benzocaine/Menthol (Benzocaine/Menthol 20%-0.5% Adams 78 Gm Cannister) 78 gm TOP ASDIRECTED PRN PRN Reason: Perineal Comfort Measure Last Admin: 01/10/21 09:49 Dose: 1 canister Documented by: Bisacodyl (Bisacodyl 10 Mg Supp) 10 mg RECTAL ONETIME PRN PRN Reason: Constipation Docusate Sodium (Docusate Sodium 100 Mg Cap) 100 mg PO Q12H PRN PRN Reason: Constipation Last Admin: 01/10/21 21:11 Dose: 100 mg Documented by: Emollient Ointment (Lanolin 100% Cream 7 Gm Tube) 0 gm TOP ASDIRECTED PRN PRN Reason: Sore Nipples Ibuprofen (Ibuprofen 400 Mg Tab) 400 mg PO Q4H PRN PRN Reason: Pain (mild 1-3) Ibuprofen (Ibuprofen 800 Mg Tab) 800 mg PO Q6H PRN PRN Reason: Pain (mild 1-3) Last Admin: 01/11/21 04:41 Dose: 800 mg Documented by: Oxycodone HCl (Oxycodone 5 Mg Tab) 5 mg PO Q2H PRN PRN Reason: Pain (severe 7-10) Witch Jonelle (Witch Jonelle Medicated Pads 40/Jar) 1 pad TOP ASDIRECTED PRN PRN Reason: comfort care Last Admin: 01/10/21 09:49 Dose: 1 container Documented by: Discontinued Medications Oxytocin/Sodium Chloride (Oxytocin 30 Unit/500 Ml-Ns) Confirm Administered Dose 30 unit in 500 mls @ as directed .ROUTE .STK-MED ONE Stop: 01/10/21 06:48 Lidocaine HCl (Lidocaine 1% 50 Ml Mdv) Confirm Administered Dose 50 ml .ROUTE .STK-MED ONE Stop: 01/10/21 06:57 Oxytocin (Oxytocin 10 Units/1 Ml Sdv) Confirm Administered Dose 10 unit .ROUTE .STK-MED ONE Stop: 01/10/21 06:48 Oxytocin (Oxytocin 10 Units/1 Ml Sdv) 10 unit IM ONETIME ONE Stop: 01/10/21 07:21 Last Admin: 01/10/21 07:20 Dose: 10 unit Documented by: - Interaction Disposition, : [place] in Room with Family Infant Interaction: Holding Feeding: Breastfed ; Nursed Well Support Person: - Recovery Exam Fundal Tone: Firm Fundal Level: At Umbilicus Fundal Placement: Midline Lochia Amount: Small Lochia Color: Rubra/Red Perineum Description: Edematous, Other (see below) Other Perinuem Description: episiotomy Episiotomy/Laceration: Approximated Bladder Status: Voiding Urinary Elimination: Voided - Exam General: Alert, Oriented Neck: Supple Lungs: Normal Respiratory Effort Extremities: Non-Tender, No Pedal Edema Skin: Warm, Dry, Intact Neurological: No New Focal Deficit Psy/Mental Status: Alert, Normal Affect, Normal Mood - Problem List & Annotations (1) Vaginal delivery SNOMED Code(s): 635366264 Code(s): O80 - ENCOUNTER FOR FULL-TERM UNCOMPLICATED DELIVERY Status: Acute Current Visit: No - Problem List Review Problem List Initiated/Reviewed/Updated: Yes - Assessment Assessment:: PPD#1 after . Stable, minimal lochia, tolerating diet. is going well, hoping to go home today. - Plan Plan:: Dismiss to home, discharge instructions reviewed.
[2021-01-11 08:53] VITALS: BP 113/71; PULSE 73
== END 2021-01-11 13:45 | disposition home or self-care (01) | DRG 560 ==
LOC: MW.OBCHECK 06:37 → MW.OB 06:37 → MW.OBCHECK 06:38 → MW.OB 06:38 → OBSVTOIN 07:18 → MW.OB 14:04
PROVIDERS: ADMIT Obstetrics & Gynecology; ATTEND Obstetrics & Gynecology
PROC: 10E0XZZ Delivery of Products of Conception, External Approach (ICD-10-PCS; principal; 2021-01-10)
PROC: 0W8NXZZ Division of Female Perineum, External Approach (ICD-10-PCS; 2021-01-10)
DX: O80 Encounter for full-term uncomplicated delivery (principal); Z3A.39 39 weeks gestation of pregnancy; Z37.0 Single live birth; Z20.822 Contact with and (suspected) exposure to COVID-19
CPT/HCPCS: 36415; 59025; 59409; 82803; 85014; 85018; A9270-GY; J2001; J2590; U0002